=== PATIENT | female | born 1960 | race Caucasian/White ===

== ENCOUNTER 2018-02-24 12:44 | Observation (INO) ==
--- NOTE | 2018-02-24 13:01 | Emergency Department Note ---
Disposition Clinical Impression: COPD exacerbation CAD (coronary artery disease) Qualifiers: Coronary Disease-Associated Artery/Lesion type: unspecified vessel or lesion type [place] vs. transplanted heart: unspecified whether [place] or transplanted heart Associated angina: angina presence unspecified Qualified Code(s): I25.10 - Atherosclerotic heart disease of [place] coronary artery without angina pectoris Disposition: Admitted As Inpatient Condition: Fair Time of Disposition: 14:40 General Adult HPI - General Chief complaint: ED Shortness of Breath/Dyspnea Stated complaint: DONAVON Time Seen by Provider: 02/24/18 12:58 Source: patient Mode of arrival: ambulatory Limitations: no limitations Nursing Notes Reviewed: Yes Vital Signs Reviewed: Yes - History of Present Illness HPI Narrative: 57-year-old female with a history of diabetes, hypertension, COPD and CAD presents for evaluation of dyspnea. Patient notes dyspnea over the past 2 days with intermittent nonproductive cough. Dyspnea is described as worse with exertion. Patient's typically on 4 L as needed but notes that she is requiring 24 hour oxygen. Patient was seen by her cross tie maker earlier today and was told to come to the ER for additional evaluation. Patient does have recent stent placement with known coronary stenosis. Patient denies history of heart failure. Patient denies any recent steroids or antibiotics. Does state that she has been using her inhaler more frequently. Denies any fevers. No specific chest pain. No abdominal pain or nausea vomiting. Pain Scale: 0 - Related Data Home Medications Medication Instructions Recorded Confirmed Levothyroxine [Synthroid] 37.5 mcg PO DAILY 02/26/16 02/24/18 Metformin HCl [Metformin HCl ER] 2,000 mg PO QPM 02/26/16 02/24/18 LORazepam [Ativan] 0.5 mg PO TID PRN 08/12/16 02/24/18 Montelukast [Singulair] 10 mg PO DAILY 09/28/16 02/24/18 Cetirizine HCl [Zyrtec] 10 mg PO DAILY 11/27/16 02/24/18 Albuterol Sulfate [Ventolin Hfa] 18 gm IH DAILY 01/21/18 02/24/18 Aripiprazole [Abilify] 20 mg PO DAILY 01/21/18 02/24/18 Fluticasone Propionate [Flonase 9.9 ml NS DAILY 01/21/18 02/24/18 Allergy Relief] Pregabalin [Lyrica] 50 mg PO TID 01/21/18 02/24/18 Roflumilast [Daliresp] 500 mcg PO DAILY 01/21/18 02/24/18 Tiotropium Br/Olodaterol HCl 4 gm IH DAILY 01/21/18 02/24/18 [Stiolto Respimat Inhal [place]] Venlafaxine HCl 100 mg PO DAILY 01/21/18 02/24/18 rOPINIRole [Requip] 0.5 mg PO HS 01/21/18 02/24/18 Olmesartan Medoxomil 40 mg PO DAILY 02/24/18 02/24/18 Previous Rx's Medication Instructions Recorded Aspirin 81 mg PO DAILY #30 tab.chew 01/22/18 Atorvastatin [Lipitor] 40 mg PO HS #30 tablet 01/22/18 Clopidogrel [Plavix] 75 mg PO DAILY #30 tablet 01/22/18 Isosorbide MONOnitrate [Isosorbide 120 mg PO DAILY #30 tab.er.24h 01/22/18 Mononitrate ER] Metoprolol [Lopressor] 50 mg PO BID #60 tablet 01/22/18 amLODIPine [Norvasc] 5 mg PO DAILY #30 tablet 01/22/18 Allergies Allergy/AdvReac Type Severity Reaction Status Date / Time lurasidone [From Latuda] AdvReac See Verified 02/24/18 12:56 Comments All systems ED: reviewed and negative except as stated. Constitutional: Denies: fever Cardiovascular: Denies: chest pain Respiratory: Reports: cough, dyspnea, sputum production Gastrointestinal: Denies: abdominal pain, nausea, vomiting, diarrhea Past Medical History - Past Medical History Source: patient Medical history: Reports: arthritis, CHF, COPD, coronary artery disease, diabetes, GERD, hyperlipidemia, hypertension, malignancy, myocardial infarction, seizures, thyroid disease Surgical history: Reports: angioplasty/stent, breast surgery, cataract Psychiatric history: Reports: anxiety, bipolar, depression AUTOMOTIVE DISMANTLER history: Reports: no AUTOMOTIVE DISMANTLER history - Social History Smoking Status: Current every day smoker Smokeless Tobacco Status: No Alcohol use: Reports: none Drug use: Reports: none Physical Exam - General Limitations: no limitations General appearance: alert, in no apparent distress - Head Head exam: atraumatic, normocephalic, normal inspection - Eye Eye exam: Present: normal appearance, EOMI - ENT ENT exam: normal exam, mucous membranes moist - Neck Neck exam: Present: normal inspection - Chest Chest inspection: Present: normal inspection - Respiratory Respiratory exam: Present: wheezes (Scattered inspiratory respiratory wheeze throughout), accessory muscle use, prolonged expiratory phase - Cardiovascular Cardiovascular exam: Present: regular rate, normal rhythm. Absent: systolic murmur - Abdominal Exam Abdominal exam: Present: soft, Non-Tender - Extremities Exam Extremities exam: Present: normal inspection. Absent: pedal edema - Back Exam Back exam: Present: normal inspection - Neurological Exam Neurological exam: Present: alert - Skin Skin exam: Present: warm, dry, intact, normal color Course Course Narrative: Patient will get aerosols, steroids, basic lab work including EKG, chest x-ray troponin and BNP. Disposition likely admission. - Reevaluation(s) Reevaluation #1: Patient seen and examined. Patient's breathing appears to be intermittently imp roved. Patient continues to have diffuse expiratory wheeze. Patient will get repeat nebs. Patient does have increased nausea requirement in the setting of COPD and CAD. Patient be admitted for continued respiratory support monitoring. Patient is agreeable to plan of care. Time: 14:39 Vital Signs Temperature 98.3 F 02/24/18 12:52 Pulse Rate 84 02/24/18 12:52 Respiratory Rate 20 02/24/18 12:52 Blood Pressure 130/74 02/24/18 12:52 O2 Sat by Pulse Oximetry 95 02/24/18 12:52 Temperature 98.3 F 02/24/18 13:05 Pulse Rate 87 02/24/18 14:30 Respiratory Rate 22 02/24/18 14:30 Blood Pressure 129/70 02/24/18 14:30 O2 Sat by Pulse Oximetry 91 02/24/18 14:30 Oxygen Delivery Oxygen Delivery Nasal Cannula Medical Decision Making - [facility] Narrative Medical decision making narrative: Patient presented for concerns of dyspnea. Patient does have a history of COPD, CAD. Patient does have prior recent admission for evaluation of her CAD. Patient does have severe two-vessel disease. Patient presents with dyspnea over the past 2 days. Does have increasing altered requirement from baseline. Has been using her albuterol inhaler more at home. Patient's symptoms are most consistent with a COPD exacerbation at this point. Patient has no elevation of troponin. No significant elevation in BNP. Patient received triple nebs as well as steroids. Patient received additional nebulized therapies in the ED. Patient does not require any noninvasive positive pressure ventilation. Patient will be admitted to the hospital service for a COPD exacerbation with continued respiratory support monitoring. Patient is agreeable with this plan of care. - Medical Records Medical records reviewed: Yes I reviewed the patient's medical records. Impressions: There is severe two vessel coronary artery disease. Patient had successful PTCA in the mid RCA. There is a previous stent in Mid RCA with severe in-stent stenosis that was intervened on. Recommendations: Optimal medical therapy of patient's disease. Aggressive risk factor modification. Staged PCI of the mid LAD in 2-4 weeks - Lab Data Result diagrams: 02/24/18 13:20 02/24/18 13:20 Lab Results 02/24/18 02/24/18 02/24/18 Range/Units 13:20 13:20 13:20 WBC 5.5 (4.3-11.1) K/mcL RBC 4.56 (3.82-4.97) M/mcL Hgb 11.4 L (11.5-15.4) g/dL Hct 38.3 (35.3-44.9) % MCV 84.0 (83.0-100.0) fL MCH 25.0 L (28.0-33.3) pg MCHC 29.8 L (31.6-35.5) g/dL RDW 16.5 H (11.5-14.5) % Plt Count 311 (140-400) K/mcL MPV 9.1 L (9.4-12.4) fL Immature Gran % 0.7 (0-4) % Seg Neutrophils % 70.0 % Lymphocytes % 19.1 % Monocytes % 8.9 % Eosinophils % 0.9 % Basophils % 0.4 % Neutrophils # 3.8 (1.6-8.9) K/mcL Lymphocytes # 1.1 (0.6-4.6) K/mcL Monocytes # 0.5 (0.0-1.3) K/mcL Eosinophils # 0.1 (0.0-0.6) K/mcL Basophils # 0.0 (0.0-0.2) K/mcL Sodium 139 (136-145) mEq/L Potassium 3.4 L (3.5-5.1) mEq/L Chloride 104 (98-107) mEq/L Carbon Dioxide 28 (23-29) mEq/L BUN 7 (6-20) mg/dL Creatinine 0.48 L (0.60-1.20) mg/dL Est GFR ( Amer) > 60 (> 60) Est GFR (Non-Af Amer) > 60 (> 60) BUN/Creatinine Ratio 15 (6-26) Glucose 92 (70-105) mg/dL Calculated Osmolality 286 (280-300) Calcium 8.5 L (8.6-10.3) mg/dL Troponin I < 0.03 (< 0.04) ng/mL B-Natriuretic Peptide 117 H (Less than 100) pg/mL - Radiology Data Radiology results reviewed: Yes I reviewed the patient's radiology results. Chest X-Ray 02/24/18 13:01 IMPRESSION: 1. No active pulmonary disease. D/ / Noam Mart MD / Noam Mart MD Interpreting Provider: Noam Mart MD - EKG Data EKG #1 EKG attestation: Yes I reviewed and interpreted this EKG. EKG shows normal: sinus rhythm Rate: normal Rhythm: NSR [place]/QRS: normal Q waves: v1 T wave inversions noted in: v1 Interpretation: no acute changes, nonspecific ST-T wave changes S.B.A.R. - S.B.A.R. Situation: Demographics Background: Presenting Complaint Assessment: Vital Signs, Course and respsone to treatment, Patient/Family Expectation Recommendation: Barrier(s) to disposition, Recommendation based on pending studies, treatments, or consults S.B.A.RJenna Report Given to: Dr. Trevino SJennaBJennaAMilan Repor Time: 15:20 Attestation Statement - Attestation Attestation: I examined this patient and my medical decision-making was reviewed with the Resident Physician, Dr. Mosquera. I agree with the documented findings, disposition and treatment plan as described except to the extent set forth below. Patient's 57-year-old white female history of CAD and COPD who is on 4 L nasal cannula oxygen as needed and at night who presents to emergency permit today with a 2 day history of gradually worsening shortness of breath, wheezing, cough and increased oxygen requirement. Patient has been using her 4 L nasal cannula oxygen at all times and was hypoxic on arrival to the ED. Patient with mild increased work of breathing. Patient also complaining of worsening dyspnea with exertion. Patient denies any chest pain pressure or heaviness, no palpitations, no lightheadedness or syncope. No abdominal pain nausea vomiting or diaphoresis. Agree with patient's physical exam findings as documented. Patient hemodynamically stable. EKG shows a normal sinus rhythm without acute ischemia. Chest x-ray was unremarkable. Patient's lab evaluation including troponin was within normal limits. Patient received breathing treatments and steroids as well as aspirin in the ED. Patient with still diffuse wheezing but improved oxygenation. Patient will be admitted for further evaluation of COPD exacerba tion. Case was discussed with hospitalist to accept patient for admission.
--- NOTE | 2018-02-24 13:26 | Emergency Department Note ---
Disposition Clinical Impression: COPD exacerbation CAD (coronary artery disease) Qualifiers: Coronary Disease-Associated Artery/Lesion type: unspecified vessel or lesion type [place] vs. transplanted heart: unspecified whether [place] or transplanted heart Associated angina: angina presence unspecified Qualified Code(s): I25.10 - Atherosclerotic heart disease of [place] coronary artery without angina pectoris Disposition: Admitted As Inpatient Condition: Fair SOB HPI - General Chief Complaint: ED Shortness of Breath/Dyspnea Stated Complaint: DONAVON Time Seen by Provider: 02/24/18 12:58 Source: patient, family Mode of arrival: ambulatory Limitations: no limitations Vital Signs Reviewed: Yes - History of Present Illness Ms. Jiang is a 57yof w. hx of TERESA, COPD and CAD with stent placement. pt reports that she has been progressively SOB since yesterday, says she has had to user her 4L PRN O2 continuously or O2 sats drop into the 70s, had to use her albuterol nebulizer twice tomorrow with minimal relief. 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 denies fever/chills, abd pain, NVD, urinary sx, changes in appetite, ankle swelling/abd distension/increasing weight. pt says she has been wearing her CPAP with O2 every night as prescribed. pt's sister also mentioned an episode several weeks ago, pt says she got suddenly flushed and then doesn't really recall the happenings of the next few hours, says she doesn't think she fell, has no injuries/bumps/bruises, nothing hurts. Pt Subjective Complaint: shortness of breath, cough Onset (ago): day(s) (2) Severity: moderate, severe (has had to contiunously wear 4L O2 to maintain O2 sat'n) Consistency/Duration: constant, gradually worsening Improves with: oxygen, bronchodilators (minimally), upright position Worsens with: lying flat, exertion, coughing Known history of: COPD, other (CAD with stent placement, additional 70% stenosed vessel) Associated symptoms: Reports: cough, wheezing, sputum production (clear/white), orthopnea. Denies: fever, palpitations, hemoptysis, nausea/vomiting, abdominal pain, sense of impending doom Treatment prior to arrival: oxygen (4L [place]), bronchodilator (yesterday, none today) Cough present: Yes Cough Description: Productive (intermittently), Wheezy Cough Frequency: Intermittent Sputum production: Yes Sputum Amount: Small Sputum Color: Clear, White - Related Data Home Medications Medication Instructions Recorded Confirmed RX: Levothyroxine [Synthroid] 37.5 mcg PO DAILY 02/26/16 02/24/18 RX: Metformin HCl [Metformin HCl 2,000 mg PO QPM 02/26/16 02/24/18 ER] RX: LORazepam [Ativan] 0.5 mg PO TID PRN 08/12/16 02/24/18 RX: Montelukast [Singulair] 10 mg PO DAILY 09/28/16 02/24/18 RX: Cetirizine HCl [Zyrtec] 10 mg PO DAILY 11/27/16 02/24/18 RX: Albuterol Sulfate [Ventolin 18 gm IH DAILY 01/21/18 02/24/18 Hfa] RX: Aripiprazole [Abilify] 20 mg PO DAILY 01/21/18 02/24/18 RX: Fluticasone Propionate 9.9 ml NS DAILY 01/21/18 02/24/18 [Flonase Allergy Relief] RX: Pregabalin [Lyrica] 50 mg PO TID 01/21/18 02/24/18 RX: Roflumilast [Daliresp] 500 mcg PO DAILY 01/21/18 02/24/18 RX: Tiotropium Br/Olodaterol HCl 4 gm IH DAILY 01/21/18 02/24/18 [Stiolto Respimat Inhal [place]] RX: Venlafaxine HCl 100 mg PO DAILY 01/21/18 02/24/18 RX: rOPINIRole [Requip] 0.5 mg PO HS 01/21/18 02/24/18 Olmesartan Medoxomil 40 mg PO DAILY 02/24/18 02/24/18 Previous Rx's Medication Instructions Recorded RX: Aspirin 81 mg PO DAILY #30 tab.chew 01/22/18 RX: Atorvastatin [Lipitor] 40 mg PO HS #30 tablet 01/22/18 RX: Clopidogrel [Plavix] 75 mg PO DAILY #30 tablet 01/22/18 RX: Isosorbide MONOnitrate 120 mg PO DAILY #30 tab.er.24h 01/22/18 [Isosorbide Mononitrate ER] RX: Metoprolol [Lopressor] 50 mg PO BID #60 tablet 01/22/18 RX: amLODIPine [Norvasc] 5 mg PO DAILY #30 tablet 01/22/18 Allergies Allergy/AdvReac Type Severity Reaction Status Date / Time lurasidone [From Latuda] AdvReac See Verified 02/24/18 12:56 Comments Review of Systems: As Per HPI Constitutional: Denies: fever, chills, weakness, weight change Cardiovascular: Reports: dyspnea on exertion, orthopnea. Denies: chest pain, palpitations, edema, paroxysmal nocturnal dyspnea Respiratory: Reports: cough, dyspnea, wheezes, sputum production. Denies: hemoptysis Gastrointestinal: Denies: abdominal pain, nausea, vomiting, diarrhea, hematemesis, melena, hematochezia Genitourinary: Denies: urgency, dysuria, frequency, hematuria Neurological: Denies: headache, weakness, numbness, paresthesias, confusion Past Medical History - Past Medical History Medical history: Reports: arthritis, CHF, COPD, coronary artery disease, diabetes, GERD, hyperlipidemia, hypertension, malignancy, myocardial infarction, seizures, thyroid disease Surgical history: Reports: angioplasty/stent, breast surgery, cataract Psychiatric history: Reports: anxiety, bipolar, depression HUMAN RESOURCES OPERATIONS MANAGER history: Reports: no HUMAN RESOURCES OPERATIONS MANAGER history - Social History Smoking Status: Current every day smoker Smokeless Tobacco Status: No Alcohol use: Reports: none Drug use: Reports: none Physical Exam - General Limitations: no limitations General appearance: alert, in no apparent distress Course Vital Signs Temperature 98.3 F 02/24/18 12:52 Pulse Rate 84 02/24/18 12:52 Respiratory Rate 20 02/24/18 12:52 Blood Pressure 130/74 02/24/18 12:52 O2 Sat by Pulse Oximetry 95 02/24/18 12:52 Temperature 98.6 F 02/24/18 17:51 Pulse Rate 93 02/24/18 17:51 Respiratory Rate 21 02/24/18 17:51 Blood Pressure 146/76 02/24/18 17:51 O2 Sat by Pulse Oximetry 90 02/24/18 17:51 Oxygen Delivery Oxygen Delivery Nasal Cannula Shortness of Breath/Dyspnea - Lab Data Result diagrams: 02/24/18 13:20 02/24/18 13:20 Lab Results 02/24/18 02/24/18 02/24/18 Range/Units 13:20 13:20 13:20 WBC 5.5 (4.3-11.1) K/mcL RBC 4.56 (3.82-4.97) M/mcL Hgb 11.4 L (11.5-15.4) g/dL Hct 38.3 (35.3-44.9) % MCV 84.0 (83.0-100.0) fL MCH 25.0 L (28.0-33.3) pg MCHC 29.8 L (31.6-35.5) g/dL RDW 16.5 H (11.5-14.5) % Plt Count 311 (140-400) K/mcL MPV 9.1 L (9.4-12.4) fL Immature Gran % 0.7 (0-4) % Seg Neutrophils % 70.0 % Lymphocytes % 19.1 % Monocytes % 8.9 % Eosinophils % 0.9 % Basophils % 0.4 % Neutrophils # 3.8 (1.6-8.9) K/mcL Lymphocytes # 1.1 (0.6-4.6) K/mcL Monocytes # 0.5 (0.0-1.3) K/mcL Eosinophils # 0.1 (0.0-0.6) K/mcL Basophils # 0.0 (0.0-0.2) K/mcL Sodium 139 (136-145) mEq/L Potassium 3.4 L (3.5-5.1) mEq/L Chloride 104 (98-107) mEq/L Carbon Dioxide 28 (23-29) mEq/L BUN 7 (6-20) mg/dL Creatinine 0.48 L (0.60-1.20) mg/dL Est GFR ( Amer) > 60 (> 60) Est GFR (Non-Af Amer) > 60 (> 60) BUN/Creatinine Ratio 15 (6-26) Glucose 92 (70-105) mg/dL Calculated Osmolality 286 (280-300) Calcium 8.5 L (8.6-10.3) mg/dL Magnesium 1.3 L (1.6-2.6) mg/dL Troponin I < 0.03 (< 0.04) ng/mL B-Natriuretic Peptide 117 H (Less than 100) pg/mL TSH 2.007 (0.340-5.600) mcIU/mL
[2018-02-24] MEDS ORDERED: Ipratropium/Albuterol Neb 3 ML IH ONE (13:30)
[2018-02-24] MEDS ORDERED: predniSONE 20 MG TABLET PO ONE (13:31)
[2018-02-24 13:43] LABS: Basophils % 0.4 %; Eosinophils # 0.1 K/mcL (0.0-0.6); Eosinophils % 0.9 %; Hematocrit 38.3 % (35.3-44.9); Hemoglobin 11.4 g/dL (11.5-15.4); Immature Granulocytes % 0.7 % (0-4); Lymphocytes # 1.1 K/mcL (0.6-4.6); Lymphocytes % 19.1 %; Mean Corpuscular HGB Conc 29.8 g/dL (31.6-35.5); Mean Platelet Volume 9.1 fL (9.4-12.4); Monocytes # 0.5 K/mcL (0.0-1.3); Monocytes % 8.9 %; Neutrophils # 3.8 K/mcL (1.6-8.9); Platelet Count 311 K/mcL (140-400); Red Blood Count 4.56 M/mcL (3.82-4.97); Red Cell Distribution Width 16.5 % (11.5-14.5)
[2018-02-24 13:58] LABS: BUN/Creatinine Ratio 15 (6-26); Blood Urea Nitrogen 7 mg/dL (6-20); Calcium 8.5 mg/dL (8.6-10.3); Carbon Dioxide 28 mEq/L (23-29); Chloride 104 mEq/L (98-107); Glucose 92 mg/dL (70-105); Osmolality,Calculated 286 (280-300); Potassium 3.4 mEq/L (3.5-5.1); Sodium 139 mEq/L (136-145); Troponin I < 0.03 ng/mL (< 0.04); eGFR For Non-African Americans > 60 (> 60)
[2018-02-24] MEDS ORDERED: Albuterol 2.5 MG/3 ML NEBULIZER IH ONE (14:38)
[2018-02-24] MEDS ORDERED: cefTRIAXone 1,000 MG in Water for inj. (sterile) 20 ML 10 ML IVP ONE (14:38)
[2018-02-24] MEDS ORDERED: Azithromycin 500 MG in D5% in Water 250 ML IVPB ONE (14:39)
--- NOTE | 2018-02-24 16:42 | Internal Med History&Physical ---
Date of Encounter: 02/24/18 Time of Encounter: 16:35 Internal Medicine - H&P: HPI Chief complaint: Shortness of breath Admitted From: Home Plans for Post Hospital Care: Home History of present illness: Ms. Jiang is a 57 year old female with history of COPD, current smoker 1PPD since 17 yrs old, HTN, HLD, CAD, PA s/p stents, DM-II, obesity, sleep apnea on CPAP, who presents with SOB that developed 02/23/2018. HX of chronic respiratory failure on 4L NC of oxygen . Denies sore throat. Pt reports cough with occasional clear sputum. Does report some chest discomfort. She denies having fever or chills. Denies sick contacts. states pt had " flut shot < 1 month ago." Pt states she has been sleeping more upright in her recliner as of late, and has worsening OWEN. 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 Dickson, today and he was the one who recommended to come in to ED for further evaluation. Pt's at bedside during my evaluation. She denies, N/V, abdominal pain, urinary symptoms such as frequency, urgency , or dysuria. In ED WBC 5.5., hgb 11.4, plt 311, NA 139, K 3.4, BUN 7, Cr 0.48 Troponin <0.03, BNP 117 Chest x ray XR/XR chest 1V portable IMPRESSION: 1. No active pulmonary disease. Past Med Surg Social Fam HX - Past Medical History Medical history: arthritis, CHF, COPD, coronary artery disease, diabetes, GERD, hyperlipidemia, hypertension, malignancy, myocardial infarction, seizures, thyroid disease Additional medical history: cardiac stents, arrhthmias, chest pain, sleep apnea Psychiatric history: anxiety, bipolar, depression - Past Surgical History Surgical History: angioplasty/stent, breast surgery, cataract Additional surgical history: colonoscopy - Social History Smoking Status: Current every day smoker Smokeless Tobacco Status: No Alcohol use: none Drug use: none - Family History Father Living Status: Hx Family Cardiac Disorders: Yes Internal Medicine - H&P: Meds Levothyroxine [Synthroid] 37.5 mcg PO DAILY 02/26/16 [History] Metformin HCl [Metformin HCl ER] 2,000 mg PO QPM 02/26/16 [History] LORazepam [Ativan] 0.5 mg PO TID PRN 08/12/16 [History] Montelukast [Singulair] 10 mg PO DAILY 09/28/16 [History] Cetirizine HCl [Zyrtec] 10 mg PO DAILY 11/27/16 [History] Albuterol Sulfate [Ventolin Hfa] 18 gm IH DAILY 01/21/18 [History] Aripiprazole [Abilify] 20 mg PO DAILY 01/21/18 [History] Fluticasone Propionate [Flonase Allergy Relief] 9.9 ml NS DAILY 01/21/18 [Histo ry] Pregabalin [Lyrica] 50 mg PO TID 01/21/18 [History] Roflumilast [Daliresp] 500 mcg PO DAILY 01/21/18 [History] Tiotropium Br/Olodaterol HCl [Stiolto Respimat Inhal [place]] 4 gm IH DAILY 01/21/18 [History] Venlafaxine HCl 100 mg PO DAILY 01/21/18 [History] rOPINIRole [Requip] 0.5 mg PO HS 01/21/18 [History] Aspirin 81 mg PO DAILY #30 tab.chew 01/22/18 [Rx] Atorvastatin [Lipitor] 40 mg PO HS #30 tablet 01/22/18 [Rx] Clopidogrel [Plavix] 75 mg PO DAILY #30 tablet 01/22/18 [Rx] Isosorbide MONOnitrate [Isosorbide Mononitrate ER] 120 mg PO DAILY #30 tab.er.24h 01/22/18 [Rx] Metoprolol [Lopressor] 50 mg PO BID #60 tablet 01/22/18 [Rx] amLODIPine [Norvasc] 5 mg PO DAILY #30 tablet 01/22/18 [Rx] Olmesartan Medoxomil 40 mg PO DAILY 02/24/18 [History] Allergy/AdvReac Type Severity Reaction Status Date / Time lurasidone [From Latuda] AdvReac See Verified 02/24/18 12:56 Comments All Systems PM: A 10-system review of systems was performed and is negative for pertinent findings except as documented above in the HPI. - Constitutional Vitals: Temp Pulse Resp BP Pulse Ox 98.3 F 89 20 136/72 94 02/24/18 13:05 02/24/18 15:38 02/24/18 15:38 02/24/18 15:38 02/24/18 15:38 General appearance: Present: A&O X 3, morbidly obese, no acute distress Exam: . - Head Head exam: Present: atraumatic, normocephalic - Eye Eye exam: Present: PERRL, conjuntiva pink, sclera anicteric Pupils: Present: PERRL - Neck Neck exam general surgery: Present: supple, trachea midline. Absent: lymphadenopathy - Respiratory Respiratory exam: Present: decreased breath sounds, wheezes. Absent: accessory muscle use, CTAB, rales, rhonchi - Cardiovascular Cardiovascular exam: Present: RRR, +S1, +S2. Absent: diastolic murmur, gallop, rubs, systolic murmur - GI/Abdominal GI/Abdominal exam: Present: normal bowel sounds, soft, no peritoneal signs. Absent: distended, tenderness - Extremities Exam Extremities exam: Present: warm, radial pulses palpable and symmetrical. Absent: calf tenderness, cyanotic, pedal edema - Neurological Exam Neurological exam: Present: CN II-XII intact, oriented X3, no focal deficits. Absent: pronater drift, facial droop, speech deficit - Skin Skin exam: Present: dry, intact Internal Med - H&P Results - Labs CBC & Chem 7: 02/25/18 05:08 02/25/18 05:08 Labs: Short CBC 02/24/18 Range/Units 13:20 WBC 5.5 (4.3-11.1) K/mcL Hgb 11.4 L (11.5-15.4) g/dL Hct 38.3 (35.3-44.9) % Plt Count 311 (140-400) K/mcL Neutrophils # 3.8 (1.6-8.9) K/mcL BMP 02/24/18 13:20 Sodium 139 Potassium 3.4 L Chloride 104 Carbon Dioxide 28 BUN 7 Creatinine 0.48 L Glucose 92 Calcium 8.5 L Cardiac Enzymes 02/24/18 Range/Units 13:20 Troponin I < 0.03 (< 0.04) ng/mL - Impressions ITS Impressions Chest X-Ray 02/24/18 13:01 IMPRESSION: 1. No active pulmonary disease. D/ / Noam Mart MD / Noam Mart MD Interpreting Provider: Noam Mart MD - Assessment and plan (1) COPD exacerbation Current Visit: Yes Status: Acute Assessment and plan: Will place pt on Duo neb Q 4 hours and prn. Prednisone 40 mg PO BID. (2) HLD (hyperlipidemia) Current Visit: Yes Status: Acute Assessment and plan: Atorvastatin Qualifiers: Qualified Code(s): E78.5 - Hyperlipidemia, unspecified (3) CAD (coronary artery disease) Current Visit: Yes Status: Chronic Assessment and plan: ASA, plavix, and statin. Pt denies CP. Does report SOB and slipping on a recliner but no LE edema, no ascites, Chest x ray neg Will cycle troponin and discuss with cardiology in am. Will obtain EKG 12 lead if not done in ED Pt is s/p [facility] Dec 2017 Procedures Performed: LEFT HEART CATH PTCA Single Major Vessel MOD SED OTH PHYS/QHP 5/>YRS MOD SED OTHER PHYS/QHP EA Indications: Chest Pain Worsening Angina Impressions: There is severe two vessel coronary artery disease. Patient had successful PTCA in the mid RCA. There is a previous stent in Mid RCA with severe in-stent stenosis that was intervened on. Recommendations: Optimal medical therapy of patient's disease. Aggressive risk factor modification. Staged PCI of the mid LAD in 2-4 weeks Qualifiers: Coronary Disease-Associated Artery/Lesion type: unspecified vessel or lesion type [place] vs. transplanted heart: unspecified whether [place] or transplanted heart Associated angina: angina presence unspecified Qualified Code(s): I25.10 - Atherosclerotic heart disease of [place] coronary artery without angina pectoris (4) Tobacco abuse Current Visit: No Status: Acute Assessment and plan: smoking cessation advised. (5) HTN (hypertension) Current Visit: No Status: Acute Assessment and plan: Norvasc and Metoprolol. Qualifiers: Hypertension type: essential hypertension Qualified Code(s): I10 - Essential (primary) hypertension (6) Diabetes mellitus type 2 in obese Current Visit: No Status: Acute Assessment and plan: Metformin 2000 mg PO BID and adding SSI (7) Bipolar disorder Current Visit: No Status: Chronic Assessment and plan: Resume home medication Qualifiers: Active/Remission status: remission status unspecified Qualified Code(s): F31.9 - Bipolar disorder, unspecified (8) Dyspnea Current Visit: Yes Status: Acute Assessment and plan: Will check echo in am. Continue with supplemental oxygen. CPAP QHS. Smoking cessation advised. Qualifiers: Qualified Code(s): R06.00 - Dyspnea, unspecified - Time Spent With Patient Total time spent is greater than 50% in coordination of care (as documented) at patient's floor/unit and/or counseling patient: 25 - 35 minutes
[2018-02-24] MEDS ORDERED: Acetaminophen 325 MG TABLET PO PRN (17:14)
[2018-02-24] MEDS ORDERED: Naloxone 0.4 MG/ML INJ IVP PRN ×2 (17:14)
[2018-02-24] MEDS ORDERED: *HR* LORazepam 0.5 MG TABLET PO PRN (17:26)
[2018-02-24 17:43] LABS: Magnesium 1.3 mg/dL (1.6-2.6)
[2018-02-24] MEDS ORDERED: D5% in Water 1,000 ML IVC PRN ×2 (17:44→17:48)
[2018-02-24] MEDS ORDERED: Dextrose Gel 15 GM/37.5 ML TUBE PO PRN ×4 (17:44→17:48)
[2018-02-24] MEDS ORDERED: *HR* Dextrose 50 % in Water (Syg) 50 ML SYRINGE IVP PRN ×2 (17:44→17:48)
[2018-02-24 17:56] LABS: Thyroid Stimulating Hormone 2.007 mcIU/mL (0.340-5.600)
--- NOTE | 2018-02-24 18:31 | Electrocardiograph Report ---
[facility] Test Date: 2018-02-24 Pat Name: Yoli Jiang Department: [id number] Room: [facility] Gender: F Map Plotter: : 1960 Requested By: Arthur Mosquera Order Number: [id number] Reading MD: Quentin Washington Measurements Intervals [place] Rate: 81 P: 71 MO: 174 QRS: 89 QRSD: 85 T: 64 QT: 366 QTc: 425 Interpretive Statements Sinus rhythm Probable left atrial enlargement Electronically Signed On 02-24-2018 18:29:41 EDT by Quentin Washington
[2018-02-24 19:04] LABS: Estimated Average Glucose 137 mg/dl; Hemoglobin A1C 6.4 %
[2018-02-24] MEDS: *HR* Metformin 500 MG TABLET PO SCH (21:05)
[2018-02-24] MEDS: Pregabalin 50 MG CAPSULE PO SCH (21:06)
[2018-02-24] MEDS: rOPINIRole 1 MG TABLET PO SCH (21:08)
[2018-02-24] MEDS: Ipratropium/Albuterol Neb 3 ML IH SCH (22:00)
[2018-02-24 22:38] LABS: Adenovirus Not Detected (Not Detect); Bordetella Pertussis Not Detected (Not Detect); Chlamydophila pneumoniae Not Detected (Not Detect); Coronavirus 229E Not Detected (Not Detect); Coronavirus HKU1 Not Detected (Not Detect); Coronavirus NL63 Not Detected (Not Detect); Coronavirus OC43 Not Detected (Not Detect); Human Metapneumovirus Not Detected (Not Detect); Human Rhinovirus/Enterovirus Not Detected (Not Detect); Influenza A Subtype 2009 H1 Not Detected (Not Detect); Influenza A Untypeable Not Detected (Not Detect); Influenza B Not Detected (Not Detect); Mycoplasma pneumoniae Not Detected (Not Detect); Parainfluenza Virus 1 Not Detected (Not Detect); Parainfluenza Virus 2 DETECTED (Not Detect); Parainfluenza Virus 3 Not Detected (Not Detect); Parainfluenza Virus 4 Not Detected (Not Detect); Respiratory Syncytial Virus Not Detected (Not Detect)
[2018-02-25] MEDS: Ipratropium/Albuterol Neb 3 ML IH SCH ×3 (03:56→18:17)
[2018-02-25 06:37] LABS: Basophils % 0.2 %; Hematocrit 39.6 % (35.3-44.9); Hemoglobin 11.9 g/dL (11.5-15.4); Immature Granulocytes % 0.6 % (0-4); Lymphocytes # 0.8 K/mcL (0.6-4.6); Lymphocytes % 15.1 %; Mean Corpuscular HGB Conc 30.1 g/dL (31.6-35.5); Mean Corpuscular Hemoglobin 24.9 pg (28.0-33.3); Mean Platelet Volume 9.6 fL (9.4-12.4); Monocytes # 0.5 K/mcL (0.0-1.3); Monocytes % 8.6 %; Neutrophils # 4.1 K/mcL (1.6-8.9); Platelet Count 322 K/mcL (140-400); Red Blood Count 4.77 M/mcL (3.82-4.97); Red Cell Distribution Width 16.2 % (11.5-14.5); Segmented Neutrophils % 75.5 %
[2018-02-25 06:56] LABS: BUN/Creatinine Ratio 13 (6-26); Blood Urea Nitrogen 6 mg/dL (6-20); Calcium 8.9 mg/dL (8.6-10.3); Carbon Dioxide 28 mEq/L (23-29); Chloride 103 mEq/L (98-107); Glucose 71 mg/dL (70-105); Osmolality,Calculated 290 (280-300); Potassium 3.7 mEq/L (3.5-5.1); Sodium 142 mEq/L (136-145); eGFR For Non-African Americans > 60 (> 60)
[2018-02-25] MEDS: Insulin LISPRO 300 UNITS/3 ML VIAL SQ SCH ×3 (07:41→17:13)
[2018-02-25] MEDS: amLODIPine 5 MG TABLET PO SCH (08:58)
[2018-02-25] MEDS: Nicotine 14 MG PATCH.TD24 TD SCH (08:58)
[2018-02-25] MEDS: Pregabalin 50 MG CAPSULE PO SCH ×3 (08:59→20:30)
[2018-02-25] MEDS: Isosorbide MONOnitrate (24 HR) 60 MG TAB.ER.24H PO SCH (08:59)
[2018-02-25] MEDS: predniSONE 20 MG TABLET PO SCH ×2 (08:59→18:00)
[2018-02-25] MEDS: ARIPiprazole 10 MG TABLET PO SCH (08:59)
[2018-02-25] MEDS: Aspirin 81 MG TAB.CHEW PO SCH (09:00)
[2018-02-25] MEDS: Cetirizine HCl 5 MG/5 ML UDC PO SCH (09:00)
[2018-02-25] MEDS: Fluticasone Propionate Nasal 50 MCG/SPRAY BOTTLE NS SCH (09:01)
[2018-02-25] MEDS: (Roflumilast [Daliresp] 500 MCG) PO SCH (09:01)
--- NOTE | 2018-02-25 16:52 | Internal Med Progress Note ---
Hospitalist Progress Note - Encounter Date of Encounter: 02/25/18 Time of Encounter: 16:49 - Subjective Interval History: Pt states she is feeling better. Still having some wheezing but decreased coughing. She denies fever, chills, N/V or diarrhea. She denies CP or SOB. - Exam Vitals: Temp Pulse Resp BP Pulse Ox 98.5 F 87 17 117/71 94 02/25/18 15:23 02/25/18 15:23 02/25/18 15:23 02/25/18 15:23 02/25/18 15:23 Exam: . - Assessment and Plan (1) COPD exacerbation Current Visit: Yes Status: Acute Assessment and Plan: Acute exacerbation of COPD likely due to viral infection stated below. Pt on Duo neb Q 4 hours and prn. Prednisone 40 mg PO BID. Slowly improving but still wheezing. Will reassess in am. (2) Parainfluenza infection Current Visit: Yes Status: Acute Assessment and Plan: Encourage PO fluid intake, Tylenol prn for pain, and antiemetic prn (3) HLD (hyperlipidemia) Current Visit: Yes Status: Acute Assessment and Plan: Atorvastatin (4) CAD (coronary artery disease) Current Visit: Yes Status: Chronic Assessment and Plan: ASA, plavix, and statin. Pt denies CP. Does report SOB and slipping on a recliner but no LE edema, no ascites, Chest x ray neg Will cycle troponin and discuss with cardiology in am. Will obtain EKG 12 lead if not done in ED Pt is s/p [facility] Dec 2017 Procedures Performed: LEFT HEART CATH PTCA Single Major Vessel MOD SED OTH PHYS/QHP 5/>YRS MOD SED OTHER PHYS/QHP EA Indications: Chest Pain Worsening Angina Impressions: There is severe two vessel coronary artery disease. Patient had successful PTCA in the mid RCA. There is a previous stent in Mid RCA with severe in-stent stenosis that was intervened on. Recommendations: Optimal medical therapy of patient's disease. Aggressive risk factor modification. Staged PCI of the mid LAD in 2-4 weeks (5) Tobacco abuse Current Visit: No Status: Acute Assessment and Plan: smoking cessation advised. (6) HTN (hypertension) Current Visit: No Status: Acute Assessment and Plan: Norvasc and Metoprolol. (7) Diabetes mellitus type 2 in obese Current Visit: No Status: Acute Assessment and Plan: Metformin 1999 mg PO BID and adding SSI (8) Bipolar disorder Current Visit: No Status: Chronic Assessment and Plan: Resume home medication (9) Dyspnea Current Visit: Yes Status: Acute Assessment and Plan: Will check echo in am. Continue with supplemental oxygen. CPAP QHS. Smoking cessation advised. (10) Parainfluenza virus bronchitis Current Visit: Yes Status: Acute DVT Prophylaxis: SCD - Summary of Assessment and Plan Summary of Assessment and Plan: History of present illness: Ms. Jiang is a 57 year old female with history of COPD, current smoker 1PPD since 17 yrs old, HTN, HLD, CAD, [place] s/p stents, DM-II, obesity, sleep apnea on CPAP, who presents with SOB that developed 02/23/2018. HX of chronic respiratory failure on 4L NC of oxygen . Denies sore throat. Pt reports cough with occasional clear sputum. Does report some chest discomfort. She denies having fever or chills. Denies sick contacts. states pt had " flut shot < 1 month ago." Pt states she has been sleepi ng more upright in her recliner as of late, and has worsening OWEN. 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 Arriolas, today and he was the one who recommended to come in to ED for further evaluation. Pt's at bedside during my evaluation. She denies, N/V, abdominal pain, urinary symptoms such as frequency, urgency , or dysuria. In ED WBC 5.5., hgb 11.4, plt 311, NA 139, K 3.4, BUN 7, Cr 0.48 Troponin <0.03, BNP 117 Chest x ray XR/XR chest 1V portable IMPRESSION: 1. No active pulmonary disease. - Time Spent with Patient Total time spent is greater than 50% in coordination of care (as documented) at patient's floor/unit and/or counseling patient: less than 15 minutes Plan of Care Discussed with: patient Internal Medicine: Result - Labs CBC & Chem 7: 02/25/18 05:08 02/25/18 05:08 Labs: Short CBC 02/25/18 Range/Units 05:08 WBC 5.4 (4.3-11.1) K/mcL Hgb 11.9 (11.5-15.4) g/dL Hct 39.6 (35.3-44.9) % Plt Count 322 (140-400) K/mcL Neutrophils # 4.1 (1.6-8.9) K/mcL BMP 02/24/18 02/25/18 13:20 05:08 Sodium 139 142 Potassium 3.4 L 3.7 Chloride 104 103 Carbon Dioxide 28 28 BUN 7 6 Creatinine 0.48 L 0.46 L Glucose 92 71 Calcium 8.5 L 8.9 Cardiac Enzymes 02/24/18 02/24/18 02/24/18 Range/Units 13:20 19:04 22:54 Troponin I < 0.03 < 0.03 < 0.03 (< 0.04) ng/mL 02/25/18 Range/Units 05:08 Troponin I < 0.03 (< 0.04) ng/mL Consult Discharge Plan - Plan Referrals: Anish John DO [Primary Care Provider] - (3) HLD (hyperlipidemia) Qualifiers: Qualified Code(s): E78.5 - Hyperlipidemia, unspecified (4) CAD (coronary artery disease) Qualifiers: Coronary Disease-Associated Artery/Lesion type: unspecified vessel or lesion type [place] vs. transplanted heart: unspecified whether [place] or transplanted heart Associated angina: angina presence unspecified Qualified Code(s): I25.10 - Atherosclerotic heart disease of [place] coronary artery without angina pectoris (6) HTN (hypertension) Qualifiers: Hypertension type: essential hypertension Qualified Code(s): I10 - Essential (primary) hypertension (8) Bipolar disorder Qualifiers: Active/Remission status: remission status unspecified Qualified Code(s): F31.9 - Bipolar disorder, unspecified (9) Dyspnea Qualifiers: Qualified Code(s): R06.00 - Dyspnea, unspecified
[2018-02-25] MEDS: *HR* Metformin 500 MG TABLET PO SCH (18:00)
[2018-02-25] MEDS: rOPINIRole 1 MG TABLET PO SCH (20:30)
[2018-02-26] MEDS: Ipratropium/Albuterol Neb 3 ML IH SCH ×4 (00:09→16:33)
[2018-02-26] MEDS: Insulin LISPRO 300 UNITS/3 ML VIAL SQ SCH ×3 (07:47→16:19)
[2018-02-26] MEDS: Fluticasone Propionate Nasal 50 MCG/SPRAY BOTTLE NS SCH (09:22)
[2018-02-26] MEDS: ARIPiprazole 10 MG TABLET PO SCH (09:22)
[2018-02-26] MEDS: Aspirin 81 MG TAB.CHEW PO SCH (09:22)
[2018-02-26] MEDS: Nicotine 14 MG PATCH.TD24 TD SCH (09:22)
[2018-02-26] MEDS: Isosorbide MONOnitrate (24 HR) 60 MG TAB.ER.24H PO SCH (09:23)
[2018-02-26] MEDS: predniSONE 20 MG TABLET PO SCH ×2 (09:23→16:26)
[2018-02-26] MEDS: amLODIPine 5 MG TABLET PO SCH (09:23)
[2018-02-26] MEDS: Cetirizine HCl 5 MG/5 ML UDC PO SCH (09:23)
[2018-02-26] MEDS: Pregabalin 50 MG CAPSULE PO SCH ×3 (09:23→22:41)
[2018-02-26] MEDS: (Roflumilast [Daliresp] 500 MCG) PO SCH (09:24)
[2018-02-26 11:45] LABS: ABG Base Excess 8 mEq/L (-2 to 3); ABG HCO3 35 mEq/L (21-27); ABG Oxygen Saturation 95 % (95-98); ABG PCO2 57 mmHg (35-45); ABG PO2 76 mmHg (85-104); ABG TCO2 37 mEq/L (20-26)
--- NOTE | 2018-02-26 12:27 | Discharge Summary ---
- NOTES TO OUTPATIENT PROVIDER Notes to Outpatient Provider: See PCP in one week Date of Encounter: 02/26/18 Time of Encounter: 12:23 - Discharge Diagnosis (1) COPD exacerbation Priority: Primary Status: Acute (2) HTN (hypertension) Priority: Secondary Status: Acute Qualifiers: Hypertension type: essential hypertension Qualified Code(s): I10 - Essential (primary) hypertension (3) Diabetes mellitus type 2 in obese Priority: Secondary Status: Acute (4) Bipolar disorder Priority: Secondary Status: Chronic Qualifiers: Active/Remission status: remission status unspecified Qualified Code(s): F31.9 - Bipolar disorder, unspecified (5) CAD (coronary artery disease) Priority: Secondary Status: Chronic Qualifiers: Coronary Disease-Associated Artery/Lesion type: unspecified vessel or lesion type [place] vs. transplanted heart: unspecified whether [place] or transplanted heart Associated angina: angina presence unspecified Qualified Code(s): I25.10 - Atherosclerotic heart disease of [place] coronary artery without angina pectoris (6) Tobacco abuse Priority: Secondary Status: Acute Assessment and Plan: strongly encouraged tobacco cessati (7) HLD (hyperlipidemia) Priority: Secondary Status: Acute Qualifiers: Qualified Code(s): E78.5 - Hyperlipidemia, unspecified (8) Dyspnea Priority: Secondary Status: Acute Qualifiers: Qualified Code(s): R06.00 - Dyspnea, unspecified (9) Parainfluenza infection Priority: Primary Status: Acute (10) Parainfluenza virus bronchitis Priority: Primary Status: Acute Hospital course: Ms. Jiang is a 57 year old female was admitted for acute viral bronchi steroids and aerosols and condition has improved. Patient now back on baseline oxygen at 3L nasal cannula. She has been instructed to wear her oxygen 24 hours a day and continue wearing CPAP at night. She is being discharged with a scription refills for inhalers and a 5 day course of oral steroids. Discharge discussed with: patient, nurse Time spent discussing smoking cessation with patient: 3 to 10 minutes - Time Spent with Patient Total time spent providing and/or coordinating discharge services: Less than 30 minutes - Discharge Medications Prescriptions: Albuterol Sulfate [Ventolin Hfa] 18 gm IH DAILY 30 Days #1 hfa.aer.ad Cetirizine HCl [Zyrtec] 10 mg PO DAILY 30 Days #30 tablet Fluticasone Propionate [Flonase Allergy Relief] 9.9 ml NS DAILY 30 Days #1 spray.susp predniSONE [PredniSONE] 40 mg PO DAILY 5 Days #10 tablet Tiotropium Br/Olodaterol HCl [Stiolto Respimat Inhal [place]] 4 gm IH DAILY 30 Da ys #1 mist.inhal Home Medications: Levothyroxine [Synthroid] 37.5 mcg PO DAILY 02/26/16 [History] Metformin HCl [Metformin HCl ER] 2,000 mg PO QPM 02/26/16 [History] LORazepam [Ativan] 0.5 mg PO TID PRN 08/12/16 [History] Montelukast [Singulair] 10 mg PO DAILY 09/28/16 [History] Aripiprazole [Abilify] 20 mg PO DAILY 01/21/18 [History] Pregabalin [Lyrica] 50 mg PO TID 01/21/18 [History] Roflumilast [Daliresp] 500 mcg PO DAILY 01/21/18 [History] Venlafaxine HCl 100 mg PO DAILY 01/21/18 [History] rOPINIRole [Requip] 0.5 mg PO HS 01/21/18 [History] Aspirin 81 mg PO DAILY #30 tab.chew 01/22/18 [Rx] Atorvastatin [Lipitor] 40 mg PO HS #30 tablet 01/22/18 [Rx] Clopidogrel [Plavix] 75 mg PO DAILY #30 tablet 01/22/18 [Rx] Isosorbide MONOnitrate [Isosorbide Mononitrate ER] 120 mg PO DAILY #30 tab.er.24h 01/22/18 [Rx] Metoprolol [Lopressor] 50 mg PO BID #60 tablet 01/22/18 [Rx] amLODIPine [Norvasc] 5 mg PO DAILY #30 tablet 01/22/18 [Rx] Olmesartan Medoxomil 40 mg PO DAILY 02/24/18 [History] Albuterol Sulfate [Ventolin Hfa] 18 gm IH DAILY 30 Days #1 hfa.aer.ad 02/26/18 [Rx] Cetirizine HCl [Zyrtec] 10 mg PO DAILY 30 Days #30 tablet 02/26/18 [Rx] Fluticasone Propionate [Flonase Allergy Relief] 9.9 ml NS DAILY 30 Days #1 spray.susp 02/26/18 [Rx] Tiotropium Br/Olodaterol HCl [Stiolto Respimat Inhal [place]] 4 gm IH DAILY 30 Days #1 mist.inhal 02/26/18 [Rx] predniSONE [PredniSONE] 40 mg PO DAILY 5 Days #10 tablet 02/26/18 [Rx] Allergies/Adverse Reactions: Allergy/AdvReac Type Severity Reaction Status Date / Time lurasidone [From Latuda] AdvReac See Verified 02/24/18 12:56 Comments Date of admission: 02/24/18 16:34 Primary care physician: Anish John DO Consults: 02/24/18 17:17 Consult to Nurse Navigator [CONS] Routine Comment: COPD Discharging clinician: Darvin Price Anticipated date of discharge: 02/26/18 - Constitutional Vitals: Temp Pulse Resp BP Pulse Ox 98.0 F 75 17 134/75 96 02/26/18 11:23 02/26/18 11:23 02/26/18 11:23 02/26/18 11:23 02/26/18 11:23 General appearance: Present: A&O X 3, morbidly obese, no acute distress Exam: SEE EXAM - Head Head exam: Present: atraumatic, normocephalic - Eye Eye exam: Present: PERRL, conjuntiva pink, sclera anicteric Pupils: Present: PERRL - Neck Neck exam general surgery: Present: supple, trachea midline. Absent: lymphadenopathy - Respiratory Respiratory exam: Present: decreased breath sounds, CTAB, prolonged expiratory phase. Absent: accessory muscle use, rales, rhonchi, wheezes - Cardiovascular Cardiovascular exam: Present: RRR, +S1, +S2. Absent: diastolic murmur, gallop, rubs, systolic murmur - GI/Abdominal GI/Abdominal exam: Present: normal bowel sounds, soft, no peritoneal signs. Absent: distended, tenderness - Extremities Exam Extremities exam: Present: warm, radial pulses palpable and symmetrical. Absent: calf tenderness, cyanotic, pedal edema - Neurological Exam Neurological exam: Present: CN II-XII intact, oriented X3, no focal deficits. Absent: pronater drift, facial droop, speech deficit - Skin Skin exam: Present: dry, intact - Patient Status Disposition: Home, Self-Care Condition: Fair Functional capacity at discharge: independent ambulation Overall status at discharge: patient is back to baseline - Discharge Instructions Instructions: Chronic Obstructive Pulmonary Disease (DC) Follow Up With: Anish John, [Primary Care Provider] - - Diet and Activity Activity: increase activity as tolerated, resume usual activities as tolerated Diet: advance to your usual diet
[2018-02-26] MEDS: *HR* Metformin 500 MG TABLET PO SCH (16:25)
--- NOTE | 2018-02-26 16:40 | Event Note ---
Date of Encounter: 02/26/18 Time of Encounter: 16:39 Discharge was originally anticipated this afternoon however the patient had an elevated CO2. Given her history of moderate obstructive airway disease and use of CPAP with sleep apnea at home the patient will likely need qualified for BiPAP. She is being kept overnight for BiPAP qualification. I anticipate discharge tomorrow pending qualification.
[2018-02-26] MEDS: rOPINIRole 1 MG TABLET PO SCH (22:40)
[2018-02-27] MEDS: Ipratropium/Albuterol Neb 3 ML IH SCH ×2 (00:01→05:00)
[2018-02-27 07:46] VITALS: BP 152/77
[2018-02-27] MEDS: Insulin LISPRO 300 UNITS/3 ML VIAL SQ SCH (08:10)
[2018-02-27] MEDS: ARIPiprazole 10 MG TABLET PO SCH (08:11)
[2018-02-27] MEDS: Aspirin 81 MG TAB.CHEW PO SCH (08:12)
[2018-02-27] MEDS: predniSONE 20 MG TABLET PO SCH (08:13)
[2018-02-27] MEDS: Isosorbide MONOnitrate (24 HR) 60 MG TAB.ER.24H PO SCH (08:13)
[2018-02-27] MEDS: amLODIPine 5 MG TABLET PO SCH (08:13)
[2018-02-27] MEDS: Pregabalin 50 MG CAPSULE PO SCH (08:13)
[2018-02-27] MEDS: (Roflumilast [Daliresp] 500 MCG) PO SCH (08:14)
[2018-02-27] MEDS: Fluticasone Propionate Nasal 50 MCG/SPRAY BOTTLE NS SCH (08:14)
[2018-02-27] MEDS: Cetirizine HCl 5 MG/5 ML UDC PO SCH (08:14)
[2018-02-27] MEDS: Nicotine 14 MG PATCH.TD24 TD SCH (08:17)
--- NOTE | 2018-02-27 10:29 | Internal Med Progress Note ---
Hospitalist Progress Note - Encounter Date of Encounter: 02/27/18 Time of Encounter: 10:26 - Subjective Interval History: No acute changes overnight, she is without respiratory distress and resting comfortably on a baseline 3 L nasal cannula. Admitted with COPD exacerbation. Originally she was to be discharged yesterday afternoon however she does wear CPAP at home and an ABG was obtained showing carbon dioxide greater than 52. We did not overnight qualification for BiPAP for which she did not qualify. She is being discharged home in stable condition. She will be sent home with a respiratory medication prescriptions as well as a 5 day course of oral steroids. - Exam Vitals: Temp Pulse Resp BP Pulse Ox 98.0 F 69 16 152/77 97 02/27/18 07:45 02/27/18 07:45 02/27/18 07:45 02/27/18 07:45 02/27/18 07:45 Exam: PHYSICAL EXAMINATION: GENERAL: Female who appears appropriate stated age who is alert and oriented 5 without any distress HEENT: Head is normocephalic and atraumatic. Extraocular muscles are intact. Pupils are equal, round, and reactive to light and accommodation. NECK: Supple. No carotid bruits. No lymphadenopathy or thyromegaly. LUNGS: Clear/diminished to auscultation B/L AP and L. HEART: Regular rate and rhythm, S1, S2 without murmur. ABDOMEN: Soft, nontender, and nondistended. Positive bowel sounds. No hepatosplenomegaly was noted. NEUROLOGIC: Cranial nerves II through XII are grossly intact. - Assessment and Plan (1) COPD exacerbation Status: Acute Assessment and Plan: Admitted for acute exacerbation of COPD Treatment with IV aerosols and steroids Respiratory 20 distress resolved Was originally discharged yesterday however stayed overnight for potential BiPAP qualification for which she did not qualify Being discharged today (2) HTN (hypertension) Status: Acute Assessment and Plan: Continue anti-HTN medications at DC (3) Diabetes mellitus type 2 in obese Status: Acute Assessment and Plan: Continue oral hypoglycemic agents at DC (4) Bipolar disorder Status: Chronic Assessment and Plan: Continue bipolar medications at DC (5) CAD (coronary artery disease) Status: Chronic Assessment and Plan: Continue cardiac medications at DC (6) Tobacco abuse Status: Acute Assessment and Plan: Strongly encouraged tobacco cessation (7) HLD (hyperlipidemia) Status: Acute (8) Dyspnea Status: Resolved Assessment and Plan: Been instructed to wear 3 L nasal cannula 24 hours a day. (9) Parainfluenza infection Status: Acute (10) Parainfluenza virus bronchitis Status: Acute - Time Spent with Patient Total time spent is greater than 50% in coordination of care (as documented) at patient's floor/unit and/or counseling patient: less than 15 minutes Plan of Care Discussed with: patient Internal Medicine: Result - Labs CBC & Chem 7: 02/25/18 05:08 02/25/18 05:08 - ABG Interpretation ABG results: ABG ABG pH 7.40 pH Units (7.32-7.45) 02/26/18 11:38 ABG pCO2 57 mmHg (35-45) H 02/26/18 11:38 ABG pO2 76 mmHg (85-104) L 02/26/18 11:38 ABG O2 Saturation 95 % (95-98) 02/26/18 11:38 Consult Discharge Plan - Plan Instructions: Chronic Obstructive Pulmonary Disease (DC) Referrals: Ramila Duffy MD [Partnered Physician] - (hospital follow up appointment has been requested. office will call you with date and time of appointment. ) Anish John DO [Primary Care Provider] - 03/02/18 11:30 am Prescriptions: Albuterol Sulfate [Ventolin Hfa] 18 gm IH DAILY 30 Days #1 hfa.aer.ad Cetirizine HCl [Zyrtec] 10 mg PO DAILY 30 Days #30 tablet Fluticasone Propionate [Flonase Allergy Relief] 9.9 ml NS DAILY 30 Days #1 spray.susp predniSONE [PredniSONE] 40 mg PO DAILY 5 Days #10 tablet Tiotropium Br/Olodaterol HCl [Stiolto Respimat Inhal [place]] 4 gm IH DAILY 30 Days #1 mist.inhal (2) HTN (hypertension) Qualifiers: Hypertension type: essential hypertension Qualified Code(s): I10 - Essential (primary) hypertension (4) Bipolar disorder Qualifiers: Active/Remission status: remission status unspecified Qualified Code(s): F31.9 - Bipolar disorder, unspecified (5) CAD (coronary artery disease) Qualifiers: Coronary Disease-Associated Artery/Lesion type: unspecified vessel or lesion type [place] vs. transplanted heart: unspecified whether [place] or transplanted heart Associated angina: angina presence unspecified Qualified Code(s): I25.10 - Atherosclerotic heart disease of [place] coronary artery without angina pectoris (7) HLD (hyperlipidemia) Qualifiers: Qualified Code(s): E78.5 - Hyperlipidemia, unspecified (8) Dyspnea Qualifiers: Qualified Code(s): R06.00 - Dyspnea, unspecified
== END 2018-02-27 10:15 | disposition home or self-care (01) ==
LOC: EMEROOARM 12:44 → 3BNU 12:44
PROVIDERS: ADMIT Internal Medicine; ATTEND Internal Medicine

== ENCOUNTER 2019-01-22 22:48 | Observation (INO) ==
[2019-01-23] MEDS ORDERED: Ondansetron 4 MG/2 ML VIAL IVP PRN (08:05)
[2019-01-23] MEDS ORDERED: Acetaminophen 325 MG TABLET PO PRN (08:05)
[2019-01-23] MEDS ORDERED: Naloxone 0.4 MG/ML INJ IVP PRN (08:05)
[2019-01-23] MEDS ORDERED: *HR* LORazepam 0.5 MG TABLET PO PRN (08:15)
[2019-01-23] MEDS ORDERED: Dextrose Gel 15 GM/37.5 ML TUBE PO PRN ×2 (08:23)
[2019-01-23] MEDS ORDERED: D5% in Water 1,000 ML IVC PRN (08:23)
[2019-01-23] MEDS ORDERED: *HR* Dextrose 50 % in Water (Syg) 50 ML SYRINGE IVP PRN (08:23)
[2019-01-23] MEDS ORDERED: Ipratropium/Albuterol Neb 3 ML IH PRN (08:43)
[2019-01-23] MEDS ORDERED: VENLAFAXINE HCL 100 MG PO SCH (09:00)
[2019-01-23] MEDS: Loratadine 10 MG TABLET PO SCH (09:06)
[2019-01-23] MEDS: Isosorbide MONOnitrate (24 HR) 60 MG TAB.ER.24H PO SCH (09:07)
[2019-01-23] MEDS: Diltiazem CD (24hr) 120 MG CAPSULE PO SCH (09:07)
[2019-01-23] MEDS: Pregabalin 50 MG CAPSULE PO SCH ×3 (09:08→20:36)
[2019-01-23 09:51] LABS: Basophils % 0.3 %; Eosinophils # 0.3 K/mcL (0.0-0.6); Eosinophils % 2.4 %; Hemoglobin 11.6 g/dL (11.5-15.4); Immature Granulocytes % 0.6 % (0-4); Lymphocytes # 1.7 K/mcL (0.6-4.6); Lymphocytes % 13.9 %; Mean Corpuscular HGB Conc 29.7 g/dL (31.6-35.5); Mean Corpuscular Hemoglobin 24.5 pg (28.0-33.3); Mean Corpuscular Volume 82.5 fL (83.0-100.0); Mean Platelet Volume 9.3 fL (9.4-12.4); Monocytes % 8.1 %; Neutrophils # 8.8 K/mcL (1.6-8.9); Platelet Count 379 K/mcL (140-400); Red Blood Count 4.73 M/mcL (3.82-4.97); Red Cell Distribution Width 17.1 % (11.5-14.5); Segmented Neutrophils % 74.7 %; White Blood Count 11.8 K/mcL (4.3-11.1)
[2019-01-23 10:07] LABS: Alanine Aminotransferase 10 Units/L (7-52); Albumin 4.1 g/dL (3.5-5.7); Albumin/Globulin Ratio 1.5 (1.1-2.2); Alkaline Phosphatase 141 Units/L (34-104); Aspartate Amino Transferase 14 Units/L (13-39); BUN/Creatinine Ratio 15 (6-26); Bilirubin,Total 0.5 mg/dL (0.3-1.0); Blood Urea Nitrogen 8 mg/dL (6-20); Calcium 9.1 mg/dL (8.6-10.3); Carbon Dioxide 33 mEq/L (23-29); Chloride 101 mEq/L (98-107); Globulin 2.8 g/dL (2.4-3.5); Glucose 118 mg/dL (70-105); Magnesium 1.7 mg/dL (1.6-2.6); Osmolality,Calculated 285 (280-300); Potassium 4.1 mEq/L (3.5-5.1); Sodium 138 mEq/L (136-145); Total Protein 6.9 g/dL (6.4-8.9); eGFR For African Americans > 60 (> 60); eGFR For Non-African Americans > 60 (> 60)
[2019-01-23 11:11] LABS: Prothrombin Time 11.8 Seconds (9.4-12.1)
[2019-01-23 11:14] LABS: Activated Partial Thrombo Time 33.8 Seconds (26.0-36.0)
[2019-01-23] MEDS: Insulin LISPRO 300 UNITS/3 ML VIAL SQ SCH ×2 (14:08→17:51)
[2019-01-23 15:41] LABS: Hematocrit 37.4 % (35.3-44.9); Hemoglobin 11.1 g/dL (11.5-15.4)
[2019-01-23] MEDS: VENLAFAXINE PO SCH (16:46)
[2019-01-23] MEDS: Insulin DETEMIR 100 UNIT/ML X5UNITS SQ SCH (20:36)
[2019-01-23] MEDS: rOPINIRole 3 MG, rOPINIRole 2 MG PO SCH (20:36)
[2019-01-23 20:49] LABS: Hematocrit 38.8 % (35.3-44.9); Hemoglobin 11.4 g/dL (11.5-15.4)
[2019-01-23] MEDS ORDERED: NON-FORMULARY MEDICATION 1 EACH EACH (Ropinirole Hcl [Requip] 5 MG) PO SCH (21:00)
[2019-01-24 02:57] LABS: Monocytes % 10.2 %
[2019-01-24 02:59] LABS: Basophils % 0.4 %; Eosinophils # 0.3 K/mcL (0.0-0.6); Eosinophils % 2.7 %; Hematocrit 38.8 % (35.3-44.9); Hemoglobin 11.3 g/dL (11.5-15.4); Immature Granulocytes % 0.5 % (0-4); Lymphocytes # 1.9 K/mcL (0.6-4.6); Lymphocytes % 16.4 %; Mean Corpuscular HGB Conc 29.1 g/dL (31.6-35.5); Mean Corpuscular Hemoglobin 24.9 pg (28.0-33.3); Mean Corpuscular Volume 85.5 fL (83.0-100.0); Mean Platelet Volume 9.5 fL (9.4-12.4); Monocytes # 1.2 K/mcL (0.0-1.3); Platelet Count 381 K/mcL (140-400); Red Blood Count 4.54 M/mcL (3.82-4.97); Red Cell Distribution Width 17.2 % (11.5-14.5); Segmented Neutrophils % 69.8 %; White Blood Count 11.4 K/mcL (4.3-11.1)
[2019-01-24 03:03] LABS: Basophils # 0.1 K/mcL (0.0-0.2)
[2019-01-24 03:19] LABS: BUN/Creatinine Ratio 18 (6-26); Blood Urea Nitrogen 11 mg/dL (6-20); Calcium 9.2 mg/dL (8.6-10.3); Carbon Dioxide 35 mEq/L (23-29); Chloride 98 mEq/L (98-107); Glucose 123 mg/dL (70-105); Magnesium 1.8 mg/dL (1.6-2.6); Osmolality,Calculated 289 (280-300); Potassium 4.4 mEq/L (3.5-5.1); Sodium 139 mEq/L (136-145); eGFR For African Americans > 60 (> 60); eGFR For Non-African Americans > 60 (> 60)
[2019-01-24 08:07] LABS: Hematocrit 37.2 % (35.3-44.9); Hemoglobin 10.9 g/dL (11.5-15.4)
[2019-01-24] MEDS: Isosorbide MONOnitrate (24 HR) 60 MG TAB.ER.24H PO SCH (10:22)
[2019-01-24] MEDS: Diltiazem CD (24hr) 120 MG CAPSULE PO SCH (10:22)
[2019-01-24] MEDS: VENLAFAXINE PO SCH (10:22)
[2019-01-24] MEDS: Insulin LISPRO 300 UNITS/3 ML VIAL SQ SCH ×3 (10:23→17:05)
[2019-01-24] MEDS: Pregabalin 50 MG CAPSULE PO SCH ×3 (10:23→20:54)
[2019-01-24] MEDS: Loratadine 10 MG TABLET PO SCH (10:23)
[2019-01-24] MEDS: Aspirin Enteric Coated 81 MG Tablet PO SCH (12:08)
[2019-01-24 14:12] LABS: Hematocrit 36.4 % (35.3-44.9); Hemoglobin 10.6 g/dL (11.5-15.4)
[2019-01-24 17:33] LABS: Hematocrit 36.6 % (35.3-44.9); Hemoglobin 10.8 g/dL (11.5-15.4)
[2019-01-24] MEDS: rOPINIRole 3 MG, rOPINIRole 2 MG PO SCH (20:53)
[2019-01-24] MEDS: Insulin DETEMIR 100 UNIT/ML X5UNITS SQ SCH (20:54)
[2019-01-24] MEDS: *HR* OxyCODONE Immed Rel 5 MG TABLET PO PRN (23:25)
[2019-01-25 01:34] LABS: Hemoglobin 10.6 g/dL (11.5-15.4); Mean Corpuscular HGB Conc 29.4 g/dL (31.6-35.5); Mean Corpuscular Hemoglobin 24.5 pg (28.0-33.3); Mean Corpuscular Volume 83.3 fL (83.0-100.0); Mean Platelet Volume 9.3 fL (9.4-12.4); Platelet Count 373 K/mcL (140-400); Red Blood Count 4.32 M/mcL (3.82-4.97); Red Cell Distribution Width 16.8 % (11.5-14.5)
[2019-01-25 01:46] LABS: Alanine Aminotransferase 9 Units/L (7-52); Albumin 3.8 g/dL (3.5-5.7); Albumin/Globulin Ratio 1.4 (1.1-2.2); Alkaline Phosphatase 130 Units/L (34-104); Aspartate Amino Transferase 11 Units/L (13-39); BUN/Creatinine Ratio 24 (6-26); Bilirubin,Total 0.5 mg/dL (0.3-1.0); Blood Urea Nitrogen 16 mg/dL (6-20); Calcium 8.9 mg/dL (8.6-10.3); Carbon Dioxide 34 mEq/L (23-29); Chloride 99 mEq/L (98-107); Globulin 2.7 g/dL (2.4-3.5); Glucose 110 mg/dL (70-105); Osmolality,Calculated 290 (280-300); Potassium 4.3 mEq/L (3.5-5.1); Sodium 139 mEq/L (136-145); Total Protein 6.5 g/dL (6.4-8.9); eGFR For African Americans > 60 (> 60); eGFR For Non-African Americans > 60 (> 60)
[2019-01-25] MEDS: Insulin LISPRO 300 UNITS/3 ML VIAL SQ SCH ×3 (08:12→17:23)
[2019-01-25] MEDS: Isosorbide MONOnitrate (24 HR) 60 MG TAB.ER.24H PO SCH (08:12)
[2019-01-25] MEDS: VENLAFAXINE PO SCH (08:12)
[2019-01-25] MEDS: Diltiazem CD (24hr) 120 MG CAPSULE PO SCH (08:13)
[2019-01-25] MEDS: Pregabalin 50 MG CAPSULE PO SCH ×3 (08:13→21:36)
[2019-01-25] MEDS: Aspirin Enteric Coated 81 MG Tablet PO SCH (08:13)
[2019-01-25] MEDS: Loratadine 10 MG TABLET PO SCH (08:13)
[2019-01-25] MEDS: *HR* OxyCODONE Immed Rel 5 MG TABLET PO PRN (15:56)
[2019-01-25] MEDS: Insulin DETEMIR 100 UNIT/ML X5UNITS SQ SCH (21:36)
[2019-01-25] MEDS: rOPINIRole 3 MG, rOPINIRole 2 MG PO SCH (21:37)
[2019-01-26 05:13] LABS: Mean Corpuscular HGB Conc 29.7 g/dL (31.6-35.5); Mean Corpuscular Volume 84.1 fL (83.0-100.0); Mean Platelet Volume 9.6 fL (9.4-12.4); Platelet Count 399 K/mcL (140-400); Red Cell Distribution Width 16.6 % (11.5-14.5); White Blood Count 12.4 K/mcL (4.3-11.1)
[2019-01-26 05:33] LABS: Alanine Aminotransferase 13 Units/L (7-52); Albumin 3.8 g/dL (3.5-5.7); Albumin/Globulin Ratio 1.4 (1.1-2.2); Alkaline Phosphatase 133 Units/L (34-104); Aspartate Amino Transferase 17 Units/L (13-39); BUN/Creatinine Ratio 21 (6-26); Bilirubin,Total 0.5 mg/dL (0.3-1.0); Blood Urea Nitrogen 17 mg/dL (6-20); Calcium 8.9 mg/dL (8.6-10.3); Carbon Dioxide 32 mEq/L (23-29); Chloride 97 mEq/L (98-107); Globulin 2.7 g/dL (2.4-3.5); Glucose 147 mg/dL (70-105); Osmolality,Calculated 288 (280-300); Potassium 4.4 mEq/L (3.5-5.1); Sodium 137 mEq/L (136-145); Total Protein 6.5 g/dL (6.4-8.9); eGFR For African Americans > 60 (> 60); eGFR For Non-African Americans > 60 (> 60)
[2019-01-26 07:09] VITALS: BP 115/67
[2019-01-26] MEDS: Diltiazem CD (24hr) 120 MG CAPSULE PO SCH (07:55)
[2019-01-26] MEDS: Loratadine 10 MG TABLET PO SCH (07:55)
[2019-01-26] MEDS: VENLAFAXINE PO SCH (07:55)
[2019-01-26] MEDS: Aspirin Enteric Coated 81 MG Tablet PO SCH (07:55)
[2019-01-26] MEDS: Pregabalin 50 MG CAPSULE PO SCH (07:56)
[2019-01-26] MEDS: Isosorbide MONOnitrate (24 HR) 60 MG TAB.ER.24H PO SCH (07:56)
[2019-01-26] MEDS: Insulin LISPRO 300 UNITS/3 ML VIAL SQ SCH (07:59)
== END 2019-01-26 10:18 | disposition home or self-care (01) ==
LOC: EMEROOARM 22:48 → 3BNU 22:48 → SUATTDRO 01-23 03:43 → 3BNU 01-23 04:29
PROVIDERS: ADMIT Pharmacist; ATTEND Pharmacist